=== PATIENT | female | born 1995 | race Caucasian/White ===

== ENCOUNTER 2017-06-09 16:42 | Outpatient (CLI) | payer OTHER ==
[~2017-06-09] VITALS: Ht 152.4 cm; Wt 90.3 kg
[2017-06-09] MEDS ORDERED: PREN-19 PO (17:05)
--- NOTE | 2017-06-09 17:47 | TRIAGE ---
OB Triage Datetime Report Generated by CPN: 06/09/2017 17:47 Datetime: 06/09/2017 17:44 Comments: ACTIVE NST AND PT REPORT POSITIVE MOVEMENT Datetime: 06/09/2017 17:42 Labor Evaluation Frequency: 0 Monitor Mode: External Heart Rate FHR Baseline Rate: 150 Monitor Mode: External US FHR Baseline Changes: No Baseline Change Variability: Moderate 6-25 bpm Accelerations: 15X15 Decelerations: None Category: Category I Pain Assessment Pain Presence: None/Denies Datetime: 06/09/2017 17:24 Labor Evaluation Frequency: 0 Monitor Mode: External Contraction Comments: DENIES FEELING ANY UC'S Heart Rate FHR Baseline Rate: 150 Monitor Mode: External US FHR Baseline Changes: No Baseline Change Variability: Moderate 6-25 bpm Accelerations: 15X15 Decelerations: None Category: Category I Pain Assessment Pain Presence: None/Denies Datetime: 06/09/2017 16:55 Stage of : OB Triage Assessment Type: Triage Time of Arrival: 06/09/2017 16:55 EGA: 38.4 Arrived By: Ambulatory Arrived From: Office Chief Complaint: BPP/NST AND REJI Movement: Present Contractions: Denies/Absent Rupture of Membranes: Denies Vaginal Bleeding: None Vaginal Discharge: Denies Recent Sexual Intercouse: Denies Abdominal Trauma: Not Applicable Patient Complaints: Other Time Provider Notified: 06/09/2017 17:30 Provider Notified: DR SAPP Initial Plan: BPP AND NST AND REJI Maternal Assessment Level of Consciousness: Fully Conscious DTR's/Clonus: DTRs 2+; No Clonus Headache: Denies Blurred Vision: No Respiratory Effort: Unlabored; Regular Rhythm; Equal Expansion Breath Sounds, Left: Clear and Equal Breath Sounds, Right: Clear and Equal Nausea/Vomiting: Denies RUQ Epigastric Pain: Denies Lower Extremities Edema: Bilateral Lower Extremities Degree: Pitting Upper Extremities Edema: None Degree: None Facial Edema: None Temperature Route: Oral Fall Risk Assessment History of Falling: (0) No Secondary Diagnosis: (0) No Ambulatory Aid: (0) Bedrest/Nurse Assist IV Therapy: (0) No Gait: (0) Normal/Bedrest/Immobile Mental Status: (0) Oriented to Own Ability Fall Score: 0 Fall Risk Score Definition: No Risk: No action required Labor Evaluation Frequency: 0 Monitor Mode: External Heart Rate FHR Baseline Rate: 150 Monitor Mode: External US FHR Baseline Changes: No Baseline Change Variability: Moderate 6-25 bpm Accelerations: 15X15 Decelerations: None Category: Category I Pain Assessment Pain Presence: None/Denies Vaginal Exam Membrane Status: Intact
--- NOTE | 2017-06-09 17:48 | RADRPT ---
PROCEDURE: US OB biophysical profile. CLINICAL INDICATION: evaluation, tachycardia TECHNIQUE: Multiple sonographic images of the pelvis were obtained. The images were reviewed on a PACS workstation. COMPARISON: No prior studies are available for comparison. FINDINGS: There is a single viable intrauterine gestation. Cardiac activity is present with [address] [place]. There is a vertex presentation. The placenta is anterior. There is no evidence of placental abruption. There is a normal amount of amniotic fluid with an REJI = 9.1 cm. Biophysical profile: movement 2/2 tone 2/2. breathing 2/2 REJI 2/2 Total 05/11 RPTAT: AA . IMPRESSION: Normal biophysical profile. Normal heart rate of 155 beats per minute. Physician Ifeanyi Date Time Electronically viewed and signed by Physician Ifeanyi on 06/09/2017 17:47 RA/
--- NOTE | 2017-06-09 17:52 | PN ---
Triage Information Date/Time Reason for visit: tachycardia Weeks of Gestation 38 weeks 4 days /Para I-A 1 Diabetes: none Hypertention: none Objective Heart Rate: 130's Contractions: None Assessment/Plan This is a 22 years old female 2 para /0 referred from [facility] for tachycardia, heart tracing since she has been in the hospital is in the range of 150 good acceleration which meets the criteria for reactive NST patient also underwent biophysical profile and the results05/11 with REJI 9.1 ,she was discharged home with recommendation of hydration, labor instruction, kick count return to the hospital triage unit a.m., to repeat NST REJI MARCO SAPP MD Jun 09, 2017 17:50
== END 2017-06-09 18:17 | disposition home or self-care (01) ==
LOC: OBT 16:42 → L-D 16:43 → OBT 18:17
PROVIDERS: ATTEND Obstetrics & Gynecology
DX: O76 Abnormality in fetal heart rate and rhythm complicating labor and delivery (principal); Z3A.38 38 weeks gestation of pregnancy
CPT/HCPCS: 76818; Z7500; G0463

== ENCOUNTER 2017-06-26 08:25 | Inpatient (IN) | payer OTHER ==
[~2017-06-26] VITALS: Ht 152.4 cm; Wt 85.9 kg
[~2017-06-26 08:25] MED LIST: PREN-19 PO
[2017-06-26 08:58] VITALS: Ht 152.4 cm; Wt 85.9 kg
[2017-06-26 08:59] VITALS: BP 129/70; PULSE 80; RESP 20
[2017-06-26] MEDS: LACTATED RINGER'S 1,000 ML IV SCH ×3 (09:29→23:13)
[2017-06-26] MEDS ORDERED: OXYTOCIN 30 UNITS/LR 500 ML IV PRN (09:30)
[2017-06-26] MEDS ORDERED: LIDOCAINE 1% (MPF) 30 ML INJ INJ PRN (09:30)
[2017-06-26] MEDS ORDERED: MISOPROSTOL 200 MCG TAB PR PRN (09:30)
[2017-06-26] MEDS ORDERED: LACTATED RINGER'S 1,000 ML IV PRN (09:30)
[2017-06-26] MEDS ORDERED: DINOPROSTONE 10 MG VAG SUPP VAG ONE (09:30)
[2017-06-26] MEDS ORDERED: METHYLERGONOVINE 0.2 MG INJ IM PRN (09:30)
[2017-06-26] MEDS ORDERED: OXYTOCIN 30 UNITS/LR 500 ML IV SCH ×3 (09:30→20:00)
[2017-06-26] MEDS ORDERED: BUTORPHANOL 2 MG INJ IV PRN ×2 (09:30)
[2017-06-26] MEDS ORDERED: MINERAL OIL LIGHT 10 ML VIAL TOP ONE (09:30)
[2017-06-26] MEDS ORDERED: CARBOPROST 250 MCG INJ IM PRN (09:30)
[2017-06-26] MEDS ORDERED: IBUPROFEN 600 MG TAB PO PRN (09:30)
[2017-06-26 09:42] LABS: BASOPHILS % 0.2 % (0.0-2.0); EOSINOPHILS % 0.4 % (0.0-7.0); HEMATOCRIT 32.2 % (37.0-47.0); HEMOGLOBIN 10.6 g/dl (12.0-16.0); LYMPHOCYTES # 1.7 10^3/ul (0.8-2.9); LYMPHOCYTES % 16.7 % (18.0-55.0); MEAN CORPUSCULAR HEMOGLOBIN 27.2 pg (29.0-33.0); MEAN CORPUSCULAR HGB CONC 32.9 g/dl (32.0-37.0); MEAN CORPUSCULAR VOLUME 82.6 fl (72.0-104.0); MEAN PLATELET VOLUME 10.8 fl (7.4-10.4); MONOCYTE # 0.7 10^3/ul (0.3-0.9); MONOCYTES % 6.6 % (0.0-13.0); NEUTROPHIL # 7.8 10^3/ul (1.6-7.5); NEUTROPHILS % 74.9 % (30.0-74.0); PLATELET COUNT 223 10^3/UL (140-415); RED CELL DISTRIBUTION WIDTH 14.2 % (11.5-14.5); WHITE BLOOD COUNT 10.4 10^3/ul (4.8-10.8)
[2017-06-26 10:05] LABS: INR 0.95; PROTIME 12.7 Sec (12.2-14.2)
[2017-06-26 10:06] LABS: PARTIAL THROMBOPLASTIN TIME 25.5 Sec (25.0-35.0)
--- NOTE | 2017-06-26 10:35 | RADRPT ---
PROCEDURE: Obstetrical ultrasound for biophysical profile CLINICAL INDICATION: Biophysical profile. . TECHNIQUE: Obstetrical ultrasound of the uterus for biophysical profile. Transabdominal views are obtained. COMPARISON: 06/24/2017 FINDINGS: Single intrauterine gestation. Presentation: Cephalic. Placenta: Anterior. No evidence of placental abruption. No evidence of placenta previa. breathing movement = 2/2 tone = 2/2 motion = 2/2 REJI = 2/2 REJI = 10.1 cm heart rate: 138 beats per minute IMPRESSION: Single intrauterine gestation. Biophysical profile 05/11 RPTAT: AADD .Bola Starks MD, MD Date Time Electronically viewed and signed by .Bola Starks MD, on 06/26/2017 10:34 .B/
--- NOTE | 2017-06-26 10:40 | RADRPT ---
PROCEDURE: Obstetrical ultrasound. CLINICAL INDICATION: , evaluation. Pelvic pain. TECHNIQUE: Transabdominal sonographic images of the uterus obtained after first trimester , greater than 14 weeks gestation. Single intrauterine gestation present. COMPARISON: 06/24/2017 FINDINGS: Single intrauterine gestation. There is a cephalic presentation. Measurements were made in order to determine age. The results are as follows: BPD = 38 weeks 5 day(s) HC = 38 weeks 5 day(s) AC = 39 weeks 3 day(s) FL = 37 weeks 1 day(s) REJI = not measured Heart rate = 148 beats per minute The placenta is anterior. There is no evidence for an abruption or placenta previa. Ovaries are not visualized. IMPRESSION: Single intrauterine gestation of approximately 38 weeks 4 days by ultrasound criteria. [place] estimated weight = 3598 g; 34 percentile for gestational age of 41 weeks 0 days. RPTAT: AADD .Bola Starks MD, MD Date Time Electronically viewed and signed by .Bola Starks MD, on 06/26/2017 10:40 .B/
[2017-06-26] MEDS ORDERED: MISOPROSTOL 25 MCG CAPSULE ONE (11:18)
[2017-06-26] MEDS: MISOPROSTOL 25 MCG CAPSULE PO SCH ×2 (11:22→15:27)
--- NOTE | 2017-06-27 06:13 | LDN ---
Date/Time of Note Date/Time of Note DATE: 06/27/17 TIME: 06:10 Delivery Summary of a viable baby girl weighing 3455 grams or 7# 10 oz, 19.5" long, and with Apgars of 8/9. Weeks of Gestation 41w 1d Placenta Delivered: Spontaneously Meconium: none Episiotomy: No Perineal laceration: 3 Laceration repair: Bilateral first degree vaginal lacerations and a first degree perineal laceration were all repaired with 2-0 chromic. Anesthesia type: Local Estimated blood loss: 450 Sponge & Needle done & correct: Yes All needle counts correct: Yes Any foreign bodies felt in the: No (vagina) Problems: Infant Delivery Information Sex Infant Sex: female Apgars 1 Minute: 8 5 Minute: 9 Suctioning Nose & mouth suctioned at [place]: Yes Delee suction performed: No Umbilical Cord Umbilical cord with: 3 Vessels Cord presentations: no nuchal cord Mother & Baby Disposition Disposition Mom & Baby to Maternity; Good: Yes TRAVIS FARIA MD Jun 27, 2017 06:13
--- NOTE | 2017-06-27 06:21 | HP ---
Date/Time of Note Date/Time of Note DATE: 06/27/17 TIME: 06:14 OB - History Hx of Present Free Text/Dictation 22 y.o. A1 admitted 06/26 for induction for a postdates at 41 w 1d. Last Menstrual Period: Sep 12, 2016 Estimated Due Date: Jun 15, 2017 : 2 Para: 0 Spontaneous : 1 Care: Good Care Ultrasounds: Normal mid trimester US Obstetrical Complications: None Medical Complications: None, Musculoskeletal Other Concerns: PMHx: none. PSHx: none. NKDA. Past Family/Social History * Past Medical, Surgical, Family and Obstetric Histories reviewed from chart. Blood Type: AB+ Rubella: immune RPR/VDRL: Negative GBS Status: Negative HBsAG: Negative OB Admission Exam Vital Signs Vital Signs Vital Signs Date Time Temp Pulse Resp B/P Pulse Ox O2 Delivery O2 Flow Rate FiO2 06/26/17 08:59 98.8 80 20 129/70 Room Air Physical Exam HEENT: WNL Heart: Rhythm Normal Lungs: Clear Abdomen: WNL Extremities: Edema Reflexes: Normal Cervical Dilatation: 2cm Effacement: 75% Station: -2 Membranes: Intact Amniotic Fluid: Clear Heart Rate: 140's Decelerations: No Decelerations Varibility: Moderate Contractions on Admission: >10 Minutes Apart Last 72 hours Lab Results CBC & BMP 06/26/17 09:23 OB Assessment/Plan Reason for admission: induction of labor Other Assessment: Postdates. Plan: Induction Induction Method: per Pitocin Protocol TRAVIS FARIA MD Jun 27, 2017 06:21
[2017-06-27] MEDS ORDERED: OXYTOCIN 30 UNITS/LR 500 ML IV PRN (06:30)
[2017-06-27] MEDS ORDERED: HYDROCODONE/APAP (5/325) TAB PO PRN (06:30)
[2017-06-27] MEDS ORDERED: BENZOCAINE 20% 56 ML SPRAY TOP PRN (06:30)
[2017-06-27] MEDS ORDERED: METHYLERGONOVINE 0.2 MG INJ IM PRN (06:30)
[2017-06-27] MEDS ORDERED: CARBOPROST 250 MCG INJ IM PRN (06:30)
[2017-06-27] MEDS ORDERED: MISOPROSTOL 200 MCG TAB PR PRN (06:30)
[2017-06-27] MEDS ORDERED: LANOLIN 7 GM TUBE TOP PRN (06:30)
[2017-06-27 08:00] VITALS: BP 128/85; PULSE 81; RESP 16
[2017-06-27 11:21] VITALS: BP 133/84; PULSE 92; RESP 14
[2017-06-27] MEDS: IBUPROFEN 600 MG TAB PO SCH ×2 (12:21→17:51)
[2017-06-27] MEDS: LACTATED RINGER'S 1,000 ML IV* SCH ×2 (12:24→22:08)
--- NOTE | 2017-06-27 15:37 | QN ---
Documentation Comment No complaint Afebrile VSS Fundus firm Lochia scant PPD #1 Stable Routine pp care. SHWETA HOWARD MD Jun 27, 2017 15:37
--- NOTE | 2017-06-27 15:38 | DS ---
Date/Time of Note Date/Time of Note DATE: 06/27/17 TIME: 15:38 Obstetrical Discharge Record Final Diagnosis Final Diagnosis: Term delivered Vaginal Delivery Obstetrical Delivery: Spontaneous Complications Augmentation: Yes Condition on Discharge Physical Assessment Voiding: Yes Bowel Movement: Yes Breast: Soft, non-tender, Filling Fundus: Firm Calf Tenderness: No Patient Condition: Stable SHWETA HOWARD MD Jun 27, 2017 15:38
[2017-06-27 16:44] VITALS: BP 118/84; PULSE 81; RESP 14
[2017-06-27 21:00] VITALS: BP 129/72; PULSE 93; RESP 20
[2017-06-28] VITALS: BP 128/79; PULSE 87; RESP 18
[2017-06-28] MEDS: IBUPROFEN 600 MG TAB PO SCH ×4 (00:18→18:04)
[2017-06-28 04:00] VITALS: BP 120/70; PULSE 82; RESP 22
[2017-06-28] MEDS: LACTATED RINGER'S 1,000 ML IV* SCH ×2 (06:08→22:08)
[2017-06-28 08:43] VITALS: BP 134/85; PULSE 75; RESP 17
[2017-06-28 09:57] LABS: BASOPHILS % 0.4 % (0.0-2.0); EOSINOPHILS # 0.1 10^3/ul (0.0-0.5); EOSINOPHILS % 0.9 % (0.0-7.0); HEMOGLOBIN 7.7 g/dl (12.0-16.0); LYMPHOCYTES # 2.6 10^3/ul (0.8-2.9); LYMPHOCYTES % 23.6 % (18.0-55.0); MEAN CORPUSCULAR HEMOGLOBIN 27.2 pg (29.0-33.0); MEAN CORPUSCULAR HGB CONC 32.1 g/dl (32.0-37.0); MEAN CORPUSCULAR VOLUME 84.8 fl (72.0-104.0); MEAN PLATELET VOLUME 10.7 fl (7.4-10.4); MONOCYTE # 0.7 10^3/ul (0.3-0.9); MONOCYTES % 6.6 % (0.0-13.0); NEUTROPHIL # 7.3 10^3/ul (1.6-7.5); NEUTROPHILS % 67.2 % (30.0-74.0); PLATELET COUNT 185 10^3/UL (140-415); RED BLOOD COUNT 2.83 10^6/ul (4.20-5.40); RED CELL DISTRIBUTION WIDTH 14.4 % (11.5-14.5); WHITE BLOOD COUNT 10.9 10^3/ul (4.8-10.8)
--- NOTE | 2017-06-28 12:15 | QN ---
Documentation Comment ppd1 pt doing well vss examwnl ppd1 continue care ARTHUR FORDE MD Jun 28, 2017 12:15
[2017-06-28 16:13] VITALS: BP 124/71; PULSE 63; RESP 17
[2017-06-28 20:00] VITALS: BP 133/76; PULSE 86; RESP 19
[2017-06-29] MEDS: IBUPROFEN 600 MG TAB PO SCH ×3 (00:22→12:09)
[2017-06-29 04:00] VITALS: BP 123/76; PULSE 87; RESP 19
[2017-06-29] MEDS: LACTATED RINGER'S 1,000 ML IV* SCH (06:08)
[2017-06-29 08:40] VITALS: BP 123/62; PULSE 87; RESP 14
[2017-06-29 10:23] LABS: BASOPHILS % 0.2 % (0.0-2.0); EOSINOPHILS # 0.2 10^3/ul (0.0-0.5); HEMATOCRIT 23.9 % (37.0-47.0); HEMOGLOBIN 7.9 g/dl (12.0-16.0); LYMPHOCYTES # 2.2 10^3/ul (0.8-2.9); LYMPHOCYTES % 19.7 % (18.0-55.0); MEAN CORPUSCULAR HEMOGLOBIN 27.9 pg (29.0-33.0); MEAN CORPUSCULAR HGB CONC 33.1 g/dl (32.0-37.0); MEAN CORPUSCULAR VOLUME 84.5 fl (72.0-104.0); MEAN PLATELET VOLUME 10.5 fl (7.4-10.4); MONOCYTE # 0.7 10^3/ul (0.3-0.9); MONOCYTES % 5.9 % (0.0-13.0); NEUTROPHIL # 7.7 10^3/ul (1.6-7.5); NEUTROPHILS % 70.6 % (30.0-74.0); PLATELET COUNT 221 10^3/UL (140-415); RED BLOOD COUNT 2.83 10^6/ul (4.20-5.40); WHITE BLOOD COUNT 10.9 10^3/ul (4.8-10.8)
== END 2017-06-29 14:45 | disposition home or self-care (01) | DRG 775 ==
LOC: L-D 08:25 → PP1 06-27 07:55
PROVIDERS: ADMIT Obstetrics & Gynecology; ATTEND Obstetrics & Gynecology
PROC: 10E0XZZ Delivery of Products of Conception, External Approach (ICD-10-PCS; principal; 2017-06-27)
PROC: 0UQGXZZ Repair Vagina, External Approach (ICD-10-PCS; 2017-06-27)
PROC: 3E033VJ Introduction of Other Hormone into Peripheral Vein, Percutaneous Approach (ICD-10-PCS; 2017-06-27)
PROC: 0HQ9XZZ Repair Perineum Skin, External Approach (ICD-10-PCS; 2017-06-27)
DX: O48.0 Post-term pregnancy (principal); O70.0 First degree perineal laceration during delivery; Z37.0 Single live birth; Z3A.41 41 weeks gestation of pregnancy
CPT/HCPCS: 76815; 76818; 85025; 85610; 85730; 86592; 86900; 86901; 87340; J0595; J2210; J2590; J7120